=== PATIENT | female | born 1975 | race Caucasian/White ===

== ENCOUNTER 2017-06-11 15:37 | Observation (INO) | payer OTHER ==
[~2017-06-11] VITALS: Ht 175.3 cm; Wt 91.3 kg
[~2017-06-11 15:37] MED LIST: CELEBREX 200 M200 M1 PO; CLEOCIN HCL300 MG PO; DAYPRO600 MG PO; HYDROCODONE-AP1 EAC6 PO; NAPROSYN500 MG PO; NEURONTIN 300300 M1 PO; NEURONTIN600 MG PO; NUCYNTA50 MG PO; WELLBUTRIN SR150 MG PO
[2017-06-11 15:41] VITALS: BP 131/80
[2017-06-11] MEDS ORDERED: FLEXERIL PO (16:06)
[2017-06-11] MEDS ORDERED: LISINOPRIL20 MG PO (16:06)
[2017-06-11] MEDS ORDERED: ACCUNEB SO1.25 MG/1 INH (16:06)
[2017-06-11] MEDS ORDERED: CLONAZEPAM 0.50.5 M1 PO (16:06)
[2017-06-11] MEDS ORDERED: LOVASTATIN 20 M20 MG PO (16:06)
[2017-06-11] MEDS ORDERED: MOBIC15 MG PO (16:07)
[2017-06-11] MEDS ORDERED: PROTONIX40 M1 PO (16:07)
[2017-06-11] MEDS ORDERED: TRAZODONE HCL100 MG PO (16:08)
[2017-06-11] MEDS ORDERED: SILDENAFIL CIT100 MG PO (16:08)
[2017-06-11] MEDS ORDERED: TRAMADOL 50 MG50 MG PO (16:08)
[2017-06-11] MEDS ORDERED: MAXZIDE-25 MG1 EACH PO (16:09)
[2017-06-11] MEDS ORDERED: VALACYCLOVIR500 MG PO (16:10)
[2017-06-11 16:26] LABS: ABSOLUTE EOSINOPHILS 0.1 thou/uL (0.0-0.7); ABSOLUTE LYMPHOCYTES 4.4 thou/uL (0.8-5.3); ABSOLUTE MONOCYTES 0.9 thou/uL (0.0-1.2); ABSOLUTE NEUTROPHILS 7.2 thou/uL (1.6-8.1); BASOPHILS 0.2 %; HEMATOCRIT 44.5 % (37.0-47.0); HEMOGLOBIN 15.2 gm/dL (12.0-15.0); LYMPHOCYTES 34.8 %; MCH 33.7 pg (26.0-34.0); MCHC 34.2 g/dL (28.0-37.0); MCV 98.7 fL (80.0-100.0); MONOCYTES 7.1 %; MPV 8.1 fl. (7.2-11.1); NUCLEATED RBCS 0 /100WBC; PLATELET COUNT* 263 thou/uL (150-400); POLYS 56.9 %; RBC 4.51 mil/uL (4.20-5.00); RDW-CV 13.7 % (10.5-14.5); WBC 12.7 thou/uL (4.0-11.0)
[2017-06-11 16:31] LABS: ANION GAP 6 mmol/L (7-16); BUN 11 mg/dL (7-18); CALCIUM 9.3 mg/dL (8.5-10.1); CHLORIDE 104 mmol/L (98-107); CO2 32 mmol/L (21-32); CREATININE 0.9 mg/dL (0.6-1.3); GLUCOSE 104 mg/dL (70-99); POTASSIUM 3.8 mmol/L (3.5-5.1); SODIUM 142 mmol/L (136-145)
[2017-06-11 16:36] LABS: PROTIME 9.7 Seconds (9.20-11.50)
[2017-06-11 16:42] LABS: ALBUMIN 4.1 g/dL (3.4-5.0); ALKALINE PHOSPHATASE 40 U/L (46-116); LIPASE 115 U/L (73-393); NT-PRO BRAIN NAT PEPTIDE 56 pg/mL (<300); SGOT 11 U/L (15-37); SGPT 29 U/L (30-65); TOTAL BILIRUBIN 0.6 mg/dL (<0.1-1.0); TOTAL PROTEIN 7.6 g/dL (6.4-8.2); TROPONIN-I LEVEL <0.06 ng/mL (<0.06)
--- NOTE | 2017-06-11 16:45 | EKG ---
[place] [address] ELECTROCARDIOGRAM REPORT Name: JENNIFER MATA Room: [facility]#: [id number] Admission: 06/11/17 Attend Phys: Discharge: Date of : 77 Report #: [id number] THIS REPORT FOR: //name// [facility] ED Test Date: 2017-06-11 Test Time: 15:42:02 Pat Name: JENNIFER MATA Department: Room: Gender: F [employer]: : 1975 Requested By: Villa Arriaza Order Number: [id number] Reading MD: Jeffy Thompson Measurements Intervals [place] Rate: 62 P: 10 [place]: 129 QRS: 20 QRSD: 101 T: 45 QT: 414 QTc: 421 Interpretive Statements Sinus rhythm No previous ECG available for comparison Electronically Signed On 06-11-2017 16:44:49 CDT by Jeffy Thompson [email or web address] <ELECTRONICALLY SIGNED> By: Jeffy Thompson MD, [facility] 06/11/17 1644 1542 1542 Jeffy Thompson MD, FACC /EPI
[2017-06-11 17:29] VITALS: BP 111/72
[2017-06-11 18:45] VITALS: BP 108/77
--- NOTE | 2017-06-11 19:00 | NUR ---
PT ARRIVED TO UNIT VIA GURNEY AND ED STAFF. A & O X4, ABLE TO COMMUNICATE NEEDS TO STAFF. ELISEO AT BS. VS WNL. SR ON TELE MONITOR. O2 SAT > 92% ON RA. STATES CHEST PAIN IS 5/10 AND IS FEELING LESS PAIN NOW THAN WHEN THE EPISODE STARTED YESTERDAY. APPEARS COMFORTABLE, STATES SHE DOES NOT FEEL THE NEED FOR PAIN MEDICATION AT THIS TIME. STATES HER PAIN IS LOCATED SUBSTERNAL AND MID BACK. PT AND SHARE THEIR CONCERN THAT IT DOES NOT SEEM LIKE THEY ARE BEING HEARD IN REGARD TO WANTING A CALCIUM SCORE. PROVIDED THERAPEUTIC COMMUNICATION TECHNIQUE: LISTENING. EDUCATION GIVEN R/T STANDARD OF CARE FOR DIAGNOSTICS NORMALLY ORDERED FOR CARDIAC ASSESSMENT FROM NURSING PERSPECTIVE. PT AND STATED THEY UNDERSTAND A STRESS TEST MAY BE ORDERED TOMORROW ACCORDING TO THE PLAN OF CARE EXPLAINED SO FAR.
[2017-06-11 19:31] LABS: URINE BILIRUBIN NEGATIVE (Negative); URINE BLOOD TRACE (Negative); URINE CLARITY CLEAR; URINE COLOR YELLOW; URINE GLUCOSE-RANDOM NEGATIVE (Negative); URINE KETONES NEGATIVE (Negative); URINE LEUKOCYTES-REFLEX NEGATIVE (Negative); URINE NITRITE-REFLEX NEGATIVE (Negative); URINE PROTEIN NEGATIVE (Negative); URINE SPECIFIC GRAVITY 1.015 (1.005-1.030); URINE UROBILINOGEN 0.2 E.U./dl (0.2-1.0)
[2017-06-11 19:39] LABS: AMP/METHAMP Negative (Negative); BARBITURATES Negative (Negative); BENZODIAZEPINES Negative (Negative); COCAINE Negative (Negative); METHADONE Negative (Negative); OPIATES Negative (Negative); PCP Negative (Negative); THC Negative (Negative)
[2017-06-11 20:00] VITALS: BP 95/58
[2017-06-11] MEDS ORDERED: NEURONTIN600 MG PO (20:33)
[2017-06-11] MEDS ORDERED: CELEBREX 200 M200 M1 PO (20:33)
[2017-06-11] MEDS ORDERED: NUCYNTA50 MG PO (20:34)
[2017-06-11] MEDS ORDERED: WELLBUTRIN SR150 MG PO (20:35)
[2017-06-12 00:47] VITALS: BP 95/58
[2017-06-12 03:54] VITALS: BP 97/55
--- NOTE | 2017-06-12 04:09 | NUR ---
ASSUMED CARE OF PT AT 1930, NURSING ASSESSMENT COMPLETED AT START OF SHIFT. PT VOICED NO CONCERNS AT START OF SHIFT. DENIES CHEST PAIN THIS SHIFT. PT ON TELE MONITOR TRACING SINUS RHYTHM/SINUS BRADICARDIA MID 40'S TO 60'S. HOURLY ROUNDING COMPLETED, CALL LIGHT WITHIN REACH. NPO AFTER MIDNIGHT FOR CARDIOLOGY.
[2017-06-12 05:31] LABS: ABSOLUTE EOSINOPHILS 0.1 thou/uL (0.0-0.7); ABSOLUTE LYMPHOCYTES 4.2 thou/uL (0.8-5.3); ABSOLUTE MONOCYTES 0.9 thou/uL (0.0-1.2); ABSOLUTE NEUTROPHILS 6.4 thou/uL (1.6-8.1); BASOPHILS 0.1 %; EOSINOPHILS 1.1 %; HEMATOCRIT 41.1 % (37.0-47.0); LYMPHOCYTES 36.3 %; MCH 33.5 pg (26.0-34.0); MCV 98.6 fL (80.0-100.0); MONOCYTES 7.8 %; MPV 8.3 fl. (7.2-11.1); NUCLEATED RBCS 0 /100WBC; PLATELET COUNT* 242 thou/uL (150-400); POLYS 54.7 %; RBC 4.17 mil/uL (4.20-5.00); RDW-CV 13.5 % (10.5-14.5); WBC 11.7 thou/uL (4.0-11.0)
[2017-06-12 05:44] LABS: CALCIUM 8.8 mg/dL (8.5-10.1); CREATININE 0.9 mg/dL (0.6-1.3); POTASSIUM 4.2 mmol/L (3.5-5.1)
[2017-06-12 08:20] VITALS: BP 104/65
[2017-06-12 09:00] LABS: CHOLESTEROL 184 mg/dL (<200); HDL CHOLESTEROL 53 mg/dL (>40); LDL CHOLESTEROL 115 mg/dL (<100); TC:HDL 3.5 Ratio (Not establshd); TRIGLYCERIDE 80 mg/dL (<150); VLDL 16 mg/dL (<40)
[2017-06-12 09:05] LABS: SERUM ASSESSMENT Clear
[2017-06-12 11:20] VITALS: BP 94/56
--- NOTE | 2017-06-12 11:24 | NUR ---
CM SPOKE TO THE PATIENT TO DISCUSS HOME SITUATION, DISCHARGE PLANNING, AND TO INFORM OF THE ROLE OF CM. PATIENT IS ALERT, ORIENTED, AND INDEPENDENT WITH ADLS'. PATIENT WORKS AND DRIVES. PATIENT RESIDES AT HOME WITH SPOUSE. PATIENT USES 0 DME. PATIENT HAS NO HX OF HH OR SNF. PATIENT DOES NOT ANTICIPATE AND DISCHARGE PLANNING NEEDS. CM WILL REMAIN AVIALABLE TO ASSIST AND FOLLOW NEEDED.
--- NOTE | 2017-06-12 15:43 | 2DMMODE ---
[place] [id number] 2 D/M-MODE ECHOCARDIOGRAM Name: JENNIFER MATA Room: [address] IN [facility]#: [id number] Admission: 06/11/17 Attend Phys: Chris Arteaga, Discharge: Date of : 77 Date of Service: 06/12/17 1543 Report #: [id number] THIS REPORT FOR: //name// APPROVED REPORT Study performed: 06/12/2017 11:28:27 EXAM: Comprehensive 2D, Doppler, and color-flow Echocardiogram Patient Location: In-Patient Room #: [facility] Status: routine BSA: 2.07 HR: 56 bpm BP: 97/55 mmHg Rhythm: NSR Other Information Study Quality: Good Indications Chest Pain 2D Dimensions LVEF(%): 62.33 (>50%) IVSd: 9.75 (7-11mm) LVOT Diam: 22.18 (18-24mm) LVDd: 41.09 mm PWd: 9.39 (7-11mm) Ascending Ao: 29.67 (22-36mm) LVDs: 27.43 (25-40mm) Aortic Root: 30.31 mm Bradley's LVEF: 62.33 % Volumes Left Atrial Volume (Systole) LA ESV Index: 18.90 mL/m2 Aortic Valve AoV Peak Bran.: 1.19 m/s AO Peak Gr.: 5.62 mmHg LVOT Max P.42 mmHg AO Mean Gr.: 3.21 mmHg LVOT Mean P.92 mmHg LVOT Max V: 1.05 m/s AO V2 VTI: 27.17 cm LVOT Mean V: 0.62 m/s DUGLAS (VTI): 3.59 cm2 LVOT V1 VTI: 25.25 cm Mitral Valve E/A Ratio: 1.48 [place] [id number] 2 D/M-MODE ECHOCARDIOGRAM Name: JENNIFER MATA Room: [address] [place] .R.#: [id number] Admission: 06/11/17 Attend Phys: Chris Arteaga, Discharge: Date of : 77 Date of Service: 06/12/17 1543 Report #: [id number] MV Decel. Time: 188.55 ms MV E Max Bran.: 0.77 m/s MV PHT: 54.68 ms MVA (PHT): 4.02 cm2 TDI E/Lateral E': 4.53 E/Medial E': 4.81 Medial E' Bran.: 0.16 m/s Lateral E' Bran.: 0.17 m/s Pulmonary Valve PV Peak Bran.: 0.98 m/s PV Peak Gr.: 3.82 mmHg Left Ventricle The left ventricle is normal size. There is normal LV segmental wall motion. There is normal left ventricular wall thickness. Left ventricular systolic function is normal. The left ventricular ejection fraction is within the normal range. LVEF is 55-60%. The left ventricular diastolic function is normal. Right Ventricle The right ventricle is normal size. The right ventricular systolic function is normal. Atria The left atrium size is normal. The right atrium size is normal. Aortic Valve The aortic valve is normal in structure. No aortic regurgitation is present. There is no aortic valvular stenosis. Mitral Valve The mitral valve is normal in structure. Trace mitral regurgitation. No evidence of mitral valve stenosis. Tricuspid Valve The tricuspid valve is normal in structure. Unable to assess PA pressure. Trace tricuspid regurgitation. Pulmonic Valve The pulmonary valve is normal in structure. There is no pulmonic valvular regurgitation. Great Vessels The aortic root is normal in size. IVC [place] [id number] 2 D/M-MODE ECHOCARDIOGRAM Name: JENNIFER MATA Room: [address] [place] .#: [id number] Admission: 06/11/17 Attend Phys: Chris Arteaga, Discharge: Date of : 77 Date of Service: 06/12/17 1543 Report #: [id number] collapses with >50% inspiration Pericardium There is no pericardial effusion. <Conclusion> The left ventricle is normal size. There is normal left ventricular wall thickness. Left ventricular systolic function is normal. The left ventricular ejection fraction is within the normal range. LVEF is 55-60%. The left ventricular diastolic function is normal. The right ventricle is normal size. The left atrium size is normal. The aortic valve is normal in structure. The mitral valve is normal in structure. Trace mitral regurgitation. The tricuspid valve is normal in structure. IVC is normal in size and collapses with >50% inspiration There is no pericardial effusion. There is normal LV segmental wall motion. <ELECTRONICALLY SIGNED> By: Jeffy Thompson MD, FACC 06/12/17 1543 1543 1543 Jeffy Thompson MD, FACC /INF
--- NOTE | 2017-06-12 16:54 | CARDNUC ---
[place] [address] CARDIAC NUCLEAR IMAGING REPORT Name: JENNIFER MATA Room: [address] IN [facility]#: [id number] Admission: 06/11/17 Attend Phys: Chris Arteaga, Discharge: Date of : 77 Date of Service: 06/12/17 1654 Report #: [id number] THIS REPORT FOR: //name// APPROVED REPORT Study performed: 06/12/2017 08:15:00 Exam: Nuclear Stress Test Indication: chest pain Patient Location: In-Patient Room #: 221 Stress Tech: Patricia Dubois Stress Nurse: Rosalina Johnson RN Ht: 5 ft 9 in Wt: 201 lbs BSA: 2.07 m2 BMI: 29.67 Medical History Medical History: fx back Medications: aspirin, enoxaparin Allergies: nkda Cardiac Risk Factors: family hx Previous Cardiac Procedures: none Exercise History: Physically active Stress Test Details Stress Test: Pharmacologic stress testing performed using 0.4 mg of regadenoson per 5 mL given IV over 10 seconds. Reason for pharmacologic stress test: physical limitation. HR Resting HR: 56 bpm Max Heart Rate (APMHR): 179 bpm Max HR Achieved: 105 bpm Target HR (85% APMHR): 152 bpm % of APMHR: 58 Recovery HR: 82 bpm HR response to stress: Normal HR response to stress BP Resting BP: 97/65 mmHg Max BP: 95/67 mmHg BP response to stress: Normal blood pressure response to stress. ECG Resting ECG: [place] [address] CARDIAC NUCLEAR IMAGING REPORT Name: JENNIFER MATA Room: [address]#: [id number] Admission: 06/11/17 Attend Phys: Chris Arteaga, Discharge: Date of : 77 Date of Service: 06/12/17 1654 Report #: [id number] Stress ECG: Sinus Rhythm ST Change: None Recovery ECG: Sinus Rhythm Recovery ST Change: None Clinical Reason for Termination: Completed protocol Stress Symptoms: None Exercise duration: 0 min sec Exercise capacity: 1 METs Nurse Comments pt tolerated well Stress ECG Conclusion normal NM EXAM: Myocardial Perfusion REST/STRESS Imaging Protocol: Rest Tc-99m/Stress Tc-99m 1 day Resting Data Rest SPECT myocardial perfusion imaging was performed in supine position 30 minutes following the intravenous injection of 11.0 mCi of Tc-99m Sestamibi. Time of rest injection: 1350 Time of rest imagin The images were gated to evaluate regional wall motion and calculate left ventricular ejection fraction. Administration Route: IV Administration Site: Right Hand Pharmacologic Stress Pharmacologic stress test was performed by injecting Regadenoson 0.4 mg IV push followed by the intravenous injection of 33.9 mCi of Tc-99m Sestamibi. Time of stress injection: 1530 Time of stress imagin Administration Route: IV Administration Site: Right Hand Heart Rate at time of stress injection: 105 bpm. Gated Stress SPECT was performed 40 minutes after stress injection. The images were gated to evaluate regional wall motion and calculate left ventricular ejection fraction. [place] [address] CARDIAC NUCLEAR IMAGING REPORT Name: JENNIFER MATA Room: [address] [place] [facility]#: [id number] Admission: 06/11/17 Attend Phys: Chris Arteaga, Discharge: Date of : 77 Date of Service: 06/12/17 1654 Report #: [id number] Study Quality Study: Good Artifact: No artifact No artifact Lung Uptake: Normal Study Data At rest, the left ventricular ejection fraction was 72%.. Post stress, the left ventricular ejection was 76%.. SSS: 4 SRS: 6 SDS: 4 TID = 1.09. Perfusion Review of rest data reveals normal perfusion, without perfusion defects.Imaging obtained following vasodilator stress demonstrate a similar, uniform uptake of tracer without defects. Prone imaging was normal. LVEDV is normal.No segental wall motion abnormality seen. Wall Motion normal LV function Nuclear Conclusion ECG Findings: negative for ischemia Clinical Findings: negative for ischemia Nuclear Findings: negative for ischemia Exercise Capacity: normal Left Ventricular Function: normal Risk Study: low Normal perfusion stress test. <Conclusion> normal <ELECTRONICALLY SIGNED> By: Seth Saldaña MD, FACC 06/12/171653 53 53 Seth Saldaña MD, FACC /INF
[2017-06-12 17:10] VITALS: BP 94/56
--- NOTE | 2017-06-12 18:30 | NUR ---
PT WITH COMPLETE DC ORDER. DC INSTRUCTIONS AND MED LIST REVIEWED WITH PT. ANSWERED QUESTIONS TO PT'S SATISFACTION. IV AND TELE MONITOR DC'D. PT IN POSSESSION OF BELONGINGS. PT AMBULATED OFF UNIT WITH SPOUSE AND NURSING STAFF. SPOUSE TO TRANSPORT PATIENT TO HOME IN PERSONAL VEHICLE.
--- NOTE | 2017-07-02 12:40 | H ---
[place] [address] HISTORY AND PHYSICAL Name: JENNIFER MATA Room: [address] [place]#: [id number] Admission: 06/11/17 Attend Phys: Chris Arteaga MD Discharge: 06/12/17 Date of : 77 Report #: [id number] THIS REPORT FOR: //name// CC: Chris Fernández DATE OF SERVICE: 06/11/2017 CHIEF COMPLAINT OR REASON FOR ADMISSION: Chest discomfort. HISTORY OF PRESENT ILLNESS: This is a 42-year-old lady with chronic backache, presents to the hospital with chest discomfort that is going to her back. She is seen in the Emergency Department. Mentions that she has had pain symptoms previously, but nothing so severe. Her pain symptoms started last night and they have been intermittent, coming and going. She does have history of smoking previously. She quit 4 years ago, but she says at least for 20 years. She also says she has a strong family history with parents having cardiac problems and mother having cardiac problem at the age of 40. She denies any cough, phlegm, any fevers, or chills. She denies any travel history or sick contact. She denies any genitourinary or sensory, motor symptoms otherwise does have anxiety and depression. PAST MEDICAL HISTORY: Significant for anxiety, depression, and chronic backache. CURRENT MEDICATIONS: List for the patient includes bupropion, celecoxib, gabapentin, Nucynta. ALLERGIES: No known allergies. REVIEW OF SYSTEMS: HEAD: No complaints of any headache. EYES: No visual symptoms. EARS: No hearing difficulty. NOSE: No nasal discharge. NECK: No neck pain or neck swelling. THROAT: No soreness in throat. LUNGS: Cough and shortness of breath. CARDIOVASCULAR: No chest discomfort. GASTROINTESTINAL: No nausea, no vomiting, no diarrhea. GENITOURINARY: No urinary frequency or urgency. SKIN: No gross lesions or rashes. ENDOCRINE: NO complaints of diabetes. PSYCHIATRIC: No complaints of psychiatric issue. NEUROLOGIC: No sensory [place] [address] HISTORY AND PHYSICAL Name: JENNIFER MATA [place] [address] [id number] Admission: 06/11/17 Attend Phys: Chris Arteaga MD Discharge: 06/12/17 Date of : 77 Report #: [id number] HEMATOLOGIC: No complaints of easy bruising or easy bleeding. MUSCULOSKELETAL: Chronic backache. SKIN: No gross lesions or skin rashes. FAMILY MEDICAL HISTORY: Strong family history of heart disease. SOCIAL HISTORY: Denies any smoking, ex-smoker, quit 4 years ago. Denies any recreational drug use. PHYSICAL EXAMINATION: GENERAL: This is a 42-year-old lady, seen in the emergency department, awake and alert, not in distress. VITAL SIGNS: Reviewed, appeared to be stable, temperature afebrile, pulse 78, respiratory rate is 10, and blood pressure is 109/71. HEENT: Atraumatic and normocephalic. EYES: Conjunctivae are clear. Pupils are reactive. NOSE: There is no nasal discharge. NECK: Supple, no thyromegaly. LUNGS: Diminished. CARDIOVASCULAR: S1, S2 appears to be regular. ABDOMEN: Soft, nontender. No organomegaly appreciated. Bowel sounds are active. GENITOURINARY: Deferred. RECTAL: Deferred. SKIN: Warm and dry. EXTREMITIES: No cyanosis, clubbing or pedal edema noticed. VASCULAR: Upper and lower extremity pulses appear to be equal. NEUROLOGICAL: The patient is alert and conversational. Able to move all extremities. Grossly sensory, motor, and cranial nerve system appears to be intact. Overall, neuro examination nonfocal. Extraocular movements appear to be intact. BACK: Limited. Gait is not evaluated. LABORATORY DATA: Troponins are negative. Sodium 142, potassium 3.8, BUN is 11, and creatinine 0.9. Lipase levels are 115. Hemoglobin is 15, hematocrit 44, WBC count is 12, and platelet count is 263. EKG does not show any acute ST changes. ASSESSMENT AND PLAN: A 42-year-old lady, comes to the hospital with chest discomfort, squeezing type. Vital signs are stable. She does have strong family history. Symptoms are somewhat atypical. She does have smoking history, concerning for possibility of underlying coronary artery disease and angina. IMPRESSION: 1. Chest discomfort, possible angina. 2. [place] [address] HISTORY AND PHYSICAL Name: JENNIFER MATA Room: [address] Prateek Grewal#: [id number] Admission: 06/11/17 Attend Phys: Chris Artegaa MD Discharge: 06/12/17 Date of : 77 Report #: [id number] 3. Anxiety, depression. 4. Degenerative joint disease, chronic backache. PLAN: Admit this patient, serial enzymes. Telemetry monitoring. Potentially consideration for stress testing. The patient has been educated regarding the same. She verbalizes understanding. For further plan and management, please also see orders and consults. <ELECTRONICALLY SIGNED> By: Chris Arteaga MD 07/02/17 1240 1743 [id number] Arteaga MD /nt
== END 2017-06-12 18:05 | disposition home or self-care (01) ==
LOC: M.ERS 15:37 → M.TBA-ER 17:10 → M.2W 17:10
PROVIDERS: Emergency Medicine; Nurse Practitioner Family; ADMIT Internal Medicine
DX: R07.89 Other chest pain (principal); M19.90 Unspecified osteoarthritis, unspecified site; F41.9 Anxiety disorder, unspecified; F32.9 Major depressive disorder, single episode, unspecified; M54.9 Dorsalgia, unspecified; Z87.891 Personal history of nicotine dependence